=== PATIENT | male | born 1950 | race Caucasian/White ===

== ENCOUNTER 2024-05-12 21:59 | Inpatient (IN) | payer MEDICARE, OTHER, SELFPAY ==
[2024-05-12] VITALS (12 sets, daily range): BP systolic 114; BP diastolic 60; PULSE 112; TEMP 36.9; O2SAT 90–97
--- NOTE | 2024-05-12 22:46 | ED_ITS ---
HPI - SOB/Dyspnea General Chief Complaint: Shortness of Breath/Dyspnea Stated Complaint: Shortness of Breath, Fever Time Seen by Provider: 05/12/24 22:40 Source: patient Mode of arrival: Wheelchair Limitations: no limitations History of Present Illness HPI Narrative: past history of cholangiocarcinoma. Receiving chemo. Last chemo 2 weeks ago. Today fever, chills, cough and short of breath. No chest pain. Has joint pains Related Data Home Medications ?Medication ?Instructions ?Recorded ?Confirmed albuterol sulfate 90 mcg/actuation 2 inh inhalation BID PRN shortness 05/12/24 05/13/24 aerosol inhaler of breath or wheezing aspirin 81 mg capsule 81 mg PO DAILY 05/12/24 05/12/24 carvedilol 12.5 mg tablet 12.5 mg PO BID 05/12/24 05/13/24 empagliflozin 25 mg tablet 25 mg PO .AM 05/12/24 05/13/24 (Jardiance) fluticasone fur. 200 mcg-umeclid 1 inh inhalation Q24H 05/12/24 05/13/24 62.5 mcg-vilant 25 mcg inhalat.powder (Trelegy Ellipta) glipizide 5 mg tablet 5 mg PO BID 05/12/24 05/13/24 insulin glargine 100 unit/mL (3 15 unit subcut .PM 05/12/24 05/13/24 mL) subcutaneous pen (Basaglar KwikPen U-100 Insulin) linagliptin 5 mg tablet (Tradjenta) 5 mg PO DAILY 05/12/24 05/13/24 uxzgky-fqlzuilv-dkppqdl cap PO 05/12/24 6,000-19,000-30,000 unit capsule,delayed rel (Creon) metformin 500 mg tablet,extended 2,000 mg PO .AM 05/12/24 05/13/24 release 24 hr pioglitazone 45 mg tablet 45 mg PO .AM 05/12/24 05/13/24 Allergies Allergy/AdvReac Type Severity Reaction Status Date / Time clarithromycin [From Biaxin] AdvReac Mild Agitated Verified 05/12/24 22:10 Review of Systems ROS Status of ROS 10 or more systems reviewed and unremark able except as noted in history and below [facility] Medical History (Updated 05/13/24 @ 11:06 by Shaikh Leighton MD) HLD (hyperlipidemia) ?E78.5 - Hyperlipidemia, unspecified (ICD-10) (HFpEF) heart failure with preserved ejection fraction ?I50.30 - Unspecified diastolic (congestive) heart failure (ICD-10) CKD stage 3a, GFR 45-59 ml/min ?N18.31 - Chronic kidney disease, stage 3a (ICD-10) CAD (coronary artery disease) ?I25.10 - Atherosclerotic heart disease of [place] coronary artery without angina pectoris (ICD-10) Diabetes ?E11.9 - Type 2 diabetes mellitus without complications (ICD-10) COPD (chronic obstructive pulmonary disease) ?J44.9 - Chronic obstructive pulmonary disease, unspecified (ICD-10) AAA (abdominal aortic aneurysm) ?I71.40 - Abdominal aortic aneurysm, without rupture, unspecified (ICD-10) Cholangiocarcinoma ?C22.1 - Intrahepatic bile duct carcinoma (ICD-10) Surgical History (Updated 05/13/24 @ 05:01 by Karime Carvajal RN) AICD (automatic cardioverter/defibrillator) present ?Z95.810 - Presence of automatic (implantable) cardiac defibrillator (ICD-10) History of quadruple bypass ?Z95.1 - Presence of aortocoronary bypass graft (ICD-10) Family History (Updated 05/13/24 @ 00:46 by Karime Carvajal, NAE) Other Family history of COPD (chronic obstructive pulmonary disease) Family history of cancer Social History (Updated 05/13/24 @ 00:48 by Karime Carvajal RN) Within the past year, how often did you have a drink containing alcohol: never Score interpretation: A score less than 4 is consistent with normal alcohol consumption. Smoking status: Former smoker Non-prescribed substance use: denies use Highest level of school completed/degree received: some college, no degree Are you now , , , , never or living with a partner: In a typical week, how many times do you talk on the telephone with family, friends, or neighbors: 3 or more times per week How often do you get together with friends or relatives: 3 or more times per week Little interest or pleasure in doing things: not at all Feeling down, depressed, or hopeless: not at all Do you think of yourself as: straight/heterosexual Gender Identity: male Exam Constitutional Vital Signs, click to edit/add: Last Vital Signs Temp 98 F 05/13/24 23:19 Pulse 108 H 05/14/24 00:00 Resp 22 H 05/13/24 23:19 BP 144/71 H 05/13/24 23:19 Pulse Ox 94 L 05/13/24 23:19 O2 Del Method Nasal Cannula 05/13/24 23:19 O2 Flow Rate 4 05/13/24 23:19 Common normals: no apparent distress, average body habitus, oriented x3, no limitations, healthy appearing, alert and well nourished [facility] Common normals: normocephalic and head/scalp atraumatic Eye Common normals: EOMs intact bilaterally and conjunctivae normal Respiratory Common normals: normal respiratory effort, no retractions, no use of accessory muscles and clear to auscultation bilaterally Cardio Common normals: regular rate, regular rhythm, S1 normal heart sound and S2 normal heart sound GI Common normals: Normal to inspection, nondistended, normoactive bowel sounds present, soft to palpation and non-tender Extremity Common normals: normal to inspection and full ROM Neuro Common normals: oriented x3, CN's II-XII intact bilaterally and moves all extremities Psych Appearance: grossly normal Course Vital Signs Vital signs: Vital Signs Temperature 98.5 F 05/12/24 22:03 Pulse Rate 112 H 05/12/24 22:03 Respiratory Rate 22 H 05/12/24 22:03 Blood Pressure 114/60 05/12/24 22:03 Pulse Oximetry 90 L 05/12/24 22:03 Oxygen Delivery Method Room Air 05/12/24 22:03 Temperature 98 F 05/13/24 23:19 Pulse Rate 108 H 05/14/24 00:00 Respiratory Rate 22 H 05/13/24 23:19 Blood Pressure 144/71 H 05/13/24 23:19 Pulse Oximetry 94 L 05/13/24 23:19 Oxygen Delivery Method Nasal Cannula 05/13/24 23:19 Oxygen Delivery Flow Rate 4 05/13/24 23:19 MDM - SOB/Dyspnea MDM Narrative Medical decision making narrative: patient history of cholangiocarcinoma receiving chemotherapy. Last course of chemo was 2 weeks ago. Fever tonight around 6pm 102. Treated with tylenol and ibuprofen. complains of chills and shortness of breath. History of COPD. WBC 0.2. Plt count 26. cxray report pending. cxray with focal infiltrate left chest. Pulse ox @LNC 94%. Discussed with oncologist Dr Jameson who feels the patient can stay here. Dimer elevated and CTA chest ordered Lab Data Labs: Lab Results 05/12/24 Range/Units 22:20 WBC 0.2 L* (4.0-11.0) 10^3/uL RBC 2.73 L (4.70-6.10) 10^6/uL Hgb 7.8 L (14.0-18.0) g/dL Hct 24.0 L (42.0-54.0) % MCV 87.9 (80.0-94.0) fL MCH 28.6 (25.9-34.0) pg MCHC 32.5 (29.9-35.2) g/dL RDW 13.8 (11.0-15.0) % Plt Count 26 L* (150-450) 10^3/uL MPV 12.4 (9.5-13.5) fL Seg Neuts % (Manual) 5.0 L (43.0-75.0) Band Neutrophils % 4.0 (0-5) % Lymphocytes % (Manual) 57.0 (20.5-60.0) % Atypical Lymphs % (Man) 4.0 % Monocytes % (Manual) 10.0 (1.7-12.0) % Eosinophils % (Manual) 15.0 H (0.9-7.0) % Basophils % (Manual) 0.0 L (0.2-2.0) % Myelocytes % 6.0 Blast Cells % (Manual) 0.0 Neutrophils # (Manual) 0.01 L (1.4-6.5) 10^3/uL Band Neutrophils # 0.0 (0.0-0.3) 10^3/uL Lymphocytes # (Manual) 0.11 L (1.20-3.80) 10^3/uL Abs Atypical Lymphs Man 0.00 Monocytes # (Manual) 0.02 L (0.30-0.80) 10^3/uL Eosinophils # (Manual) 0.03 (0.00-0.70) 10^3/uL Basophils # (Manual) 0.00 (0.00-0.10) 10^3/uL Myelocytes # 0.01 Blast Cells # 0 Toxic Granulation 4+ Toxic Vacuolation 1+ D-Dimer 9.15 H* (<=0.59) mg/L FEU Sodium 135 L (136-145) mmol/L Potassium 3.3 L (3.5-5.1) mmol/L Chloride 102 (98-107) mmol/L Carbon Dioxide 23.9 (21.0-32.0) mmol/L Anion Gap 12.4 BUN 22.0 H (7.0-18.0) mg/dL Creatinine 1.48 H (0.70-1.30) mg/dL Est GFR ( Amer) 57 L (>=60) Est GFR (Non-Af Amer) 47 L (>=60) BUN/Creatinine Ratio 14.9 Glucose 134 H (74-106) mg/dL Lactate 1.2 (0.4-2.0) mmol/L Calcium 8.3 L (8.5-10.1) mg/dL Total Bilirubin 0.5 (0.2-1.0) mg/dL AST 12 L (15-37) U/L ALT 17 (16-63) U/L Alkaline Phosphatase 97 (46-116) U/L Total Protein 6.6 (6.4-8.2) g/dL Albumin 2.7 L (3.4-5.0) g/dL Globulin 3.9 g/dL Albumin/Globulin Ratio 0.7 Discharge Plan Discharge Chief Complaint: Shortness of Breath/Dyspnea Clinical Impression: Neutropenic fever, Thrombocytopenia, Left lower lobe pneumonia, Anemia, Acute dyspnea Patient Disposition: Admitted As Inpatient Discharge Date/Time: 05/13/24 00:34
--- NOTE | 2024-05-12 22:48 | XR_ITS ---
The [address] [address] Patient Name: DA SMITH MRN: [id number] date: 1950 Sex: M Assigned Patient Location: ER Current Patient Location: ER Accession/Order Number: [id number] Exam Date: 05/12/2024 22:58 Report Date: 05/12/2024 23:21 At the request of: LUIS DANIEL YORK Procedure: XR chest 1V EXAM: XR chest 1V HISTORY: short of breath COMPARISON: None. TECHNIQUE: One view chest FINDINGS: There are postoperative changes from CABG. A left subclavian pacemaker and right IJ Port-A-Cath are well positioned. The heart size is normal. The lungs are hyperexpanded. There is chronic fibrotic changes of the lungs. There is a focal left basilar infiltrate. There is no effusion or pneumothorax. XR/XR chest 1V IMPRESSION: 1. Focal left lower lobe infiltrate superimposed upon chronic fibrotic changes of the lungs. Recommend follow-up imaging to ensure resolution. Electronically authenticated by: ABBI CLEMENTE Date: 05/12/2024 23:21
[2024-05-12 22:54] LABS: Hemoglobin 7.8 g/dL (14.0-18.0); Mean Corpuscular HGB Conc 32.5 g/dL (29.9-35.2); Mean Corpuscular Hemoglobin 28.6 pg (25.9-34.0); Mean Corpuscular Volume 87.9 fL (80.0-94.0); Mean Platelet Volume 12.4 fL (9.5-13.5); Red Blood Count 2.73 10^6/uL (4.70-6.10); Red Cell Distribution Width 13.8 % (11.0-15.0)
[2024-05-12] MEDS: 0.9 % SODIUM CHLORIDE 1,000 ML 999 ML IV (22:58)
[2024-05-12 23:00] LABS: Platelet Count 26 10^3/uL (150-450); White Blood Count 0.2 10^3/uL (4.0-11.0)
[2024-05-12 23:13] LABS: Lactate/Lactic Acid 1.2 mmol/L (0.4-2.0)
[2024-05-12 23:21] LABS: Alanine Aminotransferase 17 U/L (16-63); Albumin Globulin Ratio 0.7; Albumin Level 2.7 g/dL (3.4-5.0); Alkaline Phosphatase 97 U/L (46-116); Anion Gap 12.4; Aspartate Amino Transferase 12 U/L (15-37); BUN Creatinine Ratio 14.9; Bilirubin Total 0.5 mg/dL (0.2-1.0); Calcium 8.3 mg/dL (8.5-10.1); Carbon Dioxide 23.9 mmol/L (21.0-32.0); Chloride 102 mmol/L (98-107); Estimated GFR (African America 57 (>=60); Estimated GFR (Non-African Ame 47 (>=60); Globulin 3.9 g/dL; Glucose 134 mg/dL (74-106); Potassium 3.3 mmol/L (3.5-5.1); Sodium 135 mmol/L (136-145); Total Protein 6.6 g/dL (6.4-8.2)
[2024-05-12] MEDS: VANCOMYCIN HCL 1,000 MG in 0.9 % SODIUM CHLORIDE 500 ML 250 MG IV (23:32)
[2024-05-12 23:49] LABS: D Dimer 9.15 mg/L FEU (<=0.59)
--- NOTE | 2024-05-12 23:50 | CT_ITS ---
The [address] [address] Patient Name: DA SMITH MRN: [id number] date: 1950 Sex: M Assigned Patient Location: ER Current Patient Location: Accession/Order Number: [id number] Exam Date: 05/12/2024 23:55 Report Date: 05/13/2024 00:52 At the request of: LUIS DANIEL YORK Procedure: CT angio chest CT angio chest 05/12/2024 10:55 PM CDT: History: short of breath Chest pain. Possible pulmonary embolism. Comparison: None. Technique: IV Contrast enhanced CTA imaging of the chest. Sagittal and coronal MIP reformatted images are provided. This CT exam was performed using one or more of the following dose reduction techniques: Automated exposure control, adjustment of the mA and/or KV according to patient size, or use of iterative reconstruction technique. Findings: The central airway is midline and patent. There are advanced emphysematous changes of the lungs bilaterally. There are several small subcentimeter pulmonary nodules scattered throughout the anterior segment of the upper lobes bilaterally. The largest on the right measures 4 mm and the largest on the left measures 4 mm. There is strandy infiltrates in the anterior inferior segment of the left lower lobe and the posterior segment of the right lower lobe. There is a calcified granuloma in the right middle lobe. There is bibasilar atelectasis and/or scar. There is no pleural effusion. The heart size is normal. There are postoperative changes from CABG. There is a left subclavian pacemaker. There is a right IJ Port-A-Cath. The pulmonary arteries are patent and normal in caliber. There is no pulmonary embolism. There are prominent mediastinal nodes. For example, a dominant right paratracheal node measures 12 mm in long axis. A dominant subcarinal node measures 23 mm in long axis. Limited imaging through the upper abdomen reveals no acute abnormality. There is pneumobilia. There is degenerative disc disease of the thoracic spine. CT/CT angio chest Impression: 1. COPD with multiple bilateral subcentimeter pulmonary nodules. Recommend follow-up CT imaging of the chest in 3 months. 2. Multifocal infiltrates in the left lower lobe in the right lower lobe, suspicious for pneumonia. 3. No pulmonary embolism. Electronically authenticated by: ABBI CLEMENTE Date: 05/13/2024 00:52
[2024-05-12] MEDS: PIPERACILLIN SODIUM/TAZOBACTAM 3.375 GM in 0.9 % SODIUM CHLORIDE 50 ML IV (23:52)
[2024-05-13] VITALS (19 sets, daily range): BP systolic 97–144; BP diastolic 57–71; PULSE 68–117; TEMP 36.4–36.8; O2SAT 87–96; BMI 23.6
[2024-05-13] LABS: Segmented Neut Absolute Manual 0.01 10^3/uL (1.4-6.5)
[2024-05-13 00:01] LABS: Eosinophils Absolute Manual 0.03 10^3/uL (0.00-0.70); Monocytes Absolute Manual 0.02 10^3/uL (0.30-0.80)
[2024-05-13] MEDS: IBUPROFEN 600 MG TABLET PO (00:01)
[2024-05-13 00:02] LABS: Blast Absolute Manual 0; Myelocytes Absolute Manual 0.01
[2024-05-13 00:03] LABS: Lymphocytes Absolute Manual 0.11 10^3/uL (1.20-3.80)
[2024-05-13 00:04] LABS: Toxic Granulation 4+; Toxic Vacuolation 1+
[2024-05-13] MEDS: 0.9 % SODIUM CHLORIDE 1,000 ML 999 ML IV (00:20)
[2024-05-13] MEDS: VANCOMYCIN HCL 1,000 MG in 0.9 % SODIUM CHLORIDE 500 ML 250 MG IV (00:21)
[2024-05-13] MEDS: FILGRASTIM 480 MCG/1.6 ML VIAL 300 MCG SUBQ (01:13)
[2024-05-13] MEDS: TEMAZEPAM 15 MG CAPSULE PO ×2 (01:14→21:08)
[2024-05-13] MEDS: 0.9 % SODIUM CHLORIDE 1,000 ML 100 ML IV ×3 (01:16→21:08)
[2024-05-13] MEDS: IPRATROPIUM/ALBUTEROL SULFATE 3 ML AMPUL.NEB IH (04:13)
--- NOTE | 2024-05-13 04:23 | RESP.RT ---
Titrated to 1 lpm
--- NOTE | 2024-05-13 04:26 | RESP.RT ---
Titrated to 1 lpm
[2024-05-13 06:38] LABS: Eosinophils Percent Auto 8.1 % (0.9-7.0); Hemoglobin 7.9 g/dL (14.0-18.0); Lymphocytes Absolute Auto 0.2 10^3/uL (1.2-3.8); Lymphocytes Percent Auto 64.9 % (20.5-60.0); Mean Corpuscular HGB Conc 31.6 g/dL (29.9-35.2); Mean Corpuscular Hemoglobin 28.6 pg (25.9-34.0); Mean Corpuscular Volume 90.6 fL (80.0-94.0); Mean Platelet Volume 12.4 fL (9.5-13.5); Monocytes Percent Auto 10.8 % (1.7-12.0); Neutrophils Absolute Auto 0.1 10^3/uL (1.4-6.5); Neutrophils Percent Auto 16.2 % (43.0-75.0); Platelet Count 27 10^3/uL (150-450); Red Blood Count 2.76 10^6/uL (4.70-6.10); Red Cell Distribution Width 14.1 % (11.0-15.0); White Blood Count 0.4 10^3/uL (4.0-11.0)
[2024-05-13 06:46] LABS: Bilirubin Urine NEGATIVE (NEGATIVE); Blood Urine NEGATIVE (NEGATIVE); Clarity Urine CLEAR (CLEAR); Color Urine YELLOW (YELLOW); Glucose Urine UA >=1000 mg/dL (NEGATIVE); Ketones Urine NEGATIVE (NEGATIVE); Leukocyte Esterase Urine NEGATIVE (NEGATIVE); Nitrite Urine NEGATIVE (NEGATIVE); Protein Urine TRACE mg/dL (NEG/TRACE); Urobilinogen Urine 0.2 EU/dL (0.2-1.0); pH Urine 5.5 (5.0-9.0)
[2024-05-13 06:52] LABS: Urine Microscopic Indicated NO
[2024-05-13 07:01] LABS: Alanine Aminotransferase 16 U/L (16-63); Albumin Globulin Ratio 0.6; Albumin Level 2.3 g/dL (3.4-5.0); Alkaline Phosphatase 92 U/L (46-116); Anion Gap 14.4; Aspartate Amino Transferase 15 U/L (15-37); Bilirubin Total 0.4 mg/dL (0.2-1.0); Calcium 7.7 mg/dL (8.5-10.1); Carbon Dioxide 21.3 mmol/L (21.0-32.0); Chloride 106 mmol/L (98-107); Estimated GFR (African America 51 (>=60); Estimated GFR (Non-African Ame 42 (>=60); Globulin 3.8 g/dL; Glucose 170 mg/dL (74-106); Magnesium 1.4 mg/dL (1.8-2.4); Potassium 3.7 mmol/L (3.5-5.1); Sodium 138 mmol/L (136-145); Total Protein 6.1 g/dL (6.4-8.2)
[2024-05-13 07:56] LABS: Glucometer 143 mg/dL (74-106)
[2024-05-13] MEDS: ACETAMINOPHEN 325 MG TABLET 650 MG PO (08:49)
[2024-05-13] MEDS: PIPERACILLIN SODIUM/TAZOBACTAM 3.375 GM in 0.9 % SODIUM CHLORIDE 50 ML IV ×3 (09:05→23:16)
--- NOTE | 2024-05-13 10:32 | CM.NOTE ---
Rounds made with Dr. Manzanares, discussed diagnosis with pt and treatment. Dr. Manzanares also discussed code status with pt and family members. Pt will not discharge today. Pt continues with labored breathing at rest, pt using accessory muscles and having conversational dyspnea.
--- NOTE | 2024-05-13 10:38 | P.HP_ITS ---
HPI H&P: HPI History of Present Illness Chief complaint: Shortness of Breath, Fever Narrative: 74-year-old male with history of cholangiocarcinoma, currently on chemotherapy developed high-grade fever last night and was brought over to ER for further evaluation. According to the patient he has been increasingly short of breath for past 2 days along with increased cough that is productive in nature. He does not use oxygen at home and was found to have borderline low pulse ox requiring supplemental oxygen (1 to 2 L via nasal cannula). Workup in ER revealed bilateral infiltrates along with severe neutropenia. He reports report Neupogen 3 days ago as outpatient and was given another dose overnight in ER. Patient is a still quite dyspneic at rest with conversational dyspnea noted. He is tachypneic with respiratory rate over 25 along with abdominal breathing. His last dose of chemotherapy was about 2 weeks ago. Given his immunosuppression, history of cholangiocarcinoma and underlying chronic lung disease-he was started on broad-spectrum antibiotics and is currently on IV vancomycin and Zosyn. He is also on gentle IV hydration because of prior history of heart failure. I was notified overnight that patient had 14 beats of V. tach but upon review of telemetry, this does not appear to be the case Opioid HPI Opioid Management Most Recent Pain and Opioid Data: Last Pain Scale 8 05/13/24 08:49 Last Pain Assessment 05/13/24 09:40 Last MAR Pain Assessment 05/13/24 10:06 Last ORT Total Score 0 05/13/24 00:55 Last ORT Risk Category Low Risk 05/13/24 00:55 Review of Systems ROS Status of ROS 10 or more systems reviewed and unremark able except as noted in history and below [facility] History (Updated 05/13/24 @ 11:06 by Shaikh Leighton MD) HLD (hyperlipidemia) ?E78.5 - Hyperlipidemia, unspecified (ICD-10) (HFpEF) heart failure with preserved ejection fraction ?I50.30 - Unspecified diastolic (congestive) heart failure (ICD-10) CKD stage 3a, GFR 45-59 ml/min ?N18.31 - Chronic kidney disease, stage 3a (ICD-10) CAD (coronary artery disease) ?I25.10 - Atherosclerotic heart disease of [place] coronary artery without angina pectoris (ICD-10) Diabetes ?E11.9 - Type 2 diabetes mellitus without complications (ICD-10) COPD (chronic obstructive pulmonary disease) ?J44.9 - Chronic obstructive pulmonary disease, unspecified (ICD-10) AAA (abdominal aortic aneurysm) ?I71.40 - Abdominal aortic aneurysm, without rupture, unspecified (ICD-10) Cholangiocarcinoma ?C22.1 - Intrahepatic bile duct carcinoma (ICD-10) Surgical History (Updated 05/13/24 @ 05:01 by Karime Carvajal, NAE) AICD (automatic cardioverter/defibrillator) present ?Z95.810 - Presence of automatic (implantable) cardiac defibrillator (ICD-10) History of quadruple bypass ?Z95.1 - Presence of aortocoronary bypass graft (ICD-10) Family History (Updated 05/13/24 @ 00:46 by Karime Carvajal, NAE) Other Family history of COPD (chronic obstructive pulmonary disease) Family history of cancer Social History (Updated 05/13/24 @ 00:48 by Karime Carvajal, NAE) Within the past year, how often did you have a drink containing alcohol: never Score interpretation: A score less than 4 is consistent with normal alcohol consumption. Smoking status: Former smoker Non-prescribed substance use: denies use Highest level of school completed/degree received: some college, no degree Are you now , , , , never or living with a partner: In a typical week, how many times do you talk on the telephone with family, friends, or neighbors: 3 or more times per week How often do you get together with friends or relatives: 3 or more times per week Little interest or pleasure in doing things: not at all Feeling down, depressed, or hopeless: not at all Do you think of yourself as: straight/heterosexual Gender Identity: male Meds Home Medications and Allergies Home Medications ?Medication ?Instructions ?Recorded ?Confirmed ?Type albuterol sulfate 90 mcg/actuation 2 inh inhalation BID PRN shortness 05/12/24 05/13/24 History aerosol inhaler of breath or wheezing aspirin 81 mg capsule 81 mg PO DAILY 05/12/24 05/12/24 History carvedilol 12.5 mg tablet 12.5 mg PO BID 05/12/24 05/13/24 History empagliflozin 25 mg tablet 25 mg PO .AM 05/12/24 05/13/24 History (Jardiance) fluticasone fur. 200 mcg-umeclid 1 inh inhalation Q24H 05/12/24 05/13/24 History 62.5 mcg-vilant 25 mcg inhalat.powder (Trelegy Ellipta) glipizide 5 mg tablet 5 mg PO BID 05/12/24 05/13/24 History insulin glargine 100 unit/mL (3 15 unit subcut .PM 05/12/24 05/13/24 History mL) subcutaneous pen (Basaglar KwikPen U-100 Insulin) linagliptin 5 mg tablet (Tradjenta) 5 mg PO DAILY 05/12/24 05/13/24 History tpxiuy-eikgbrsh-meeszgx cap PO 05/12/24 History 6,000-19,000-30,000 unit capsule,delayed rel (Creon) metformin 500 mg tablet,extended 2,000 mg PO .AM 05/12/24 05/13/24 History release 24 hr pioglitazone 45 mg tablet 45 mg PO .AM 05/12/24 05/13/24 History Allergies Allergy/AdvReac Type Severity Reaction Status Date / Time clarithromycin [From Biaxin] AdvReac Mild Agitated Verified 05/12/24 22:10 Exam Constitutional Vital Signs, click to edit/add: Last Vital Signs Temp 97.8 F 05/13/24 07:54 Pulse 108 H 05/13/24 10:00 Resp 20 05/13/24 07:54 BP 97/58 05/13/24 07:54 Pulse Ox 92 L 05/13/24 07:54 O2 Del Method Nasal Cannula 05/13/24 07:54 O2 Flow Rate 1 05/13/24 07:54 General appearance: cooperative, in distress respiratory and ill appearing [facility] Common normals: normocephalic and head/scalp atraumatic Respiratory Effort & inspection: tachypneic and respiratory distress (Using abdominal muscles for breathing) Auscultation: wheezes throughout and diminished lung sounds Other: Conversational dyspnea noted Cardio Common normals: regular rhythm, S1 normal heart sound and S2 normal heart sound Rate: tachycardic GI Common normals: Normal to inspection, nondistended, normoactive bowel sounds present, soft to palpation and non-tender Extremity Common normals: normal to inspection and full ROM Neuro Common normals: oriented x3, no focal motor deficits and no sensory deficits noted Psych Common normals: mental status grossly normal, thought process normal, denies homicidal ideation and denies suicidal ideation Results Labs Labs: Short CBC 05/12/24 05/13/24 Range/Units 22:20 06:30 WBC 0.2 L* 0.4 L* (4.0-11.0) 10^3/uL Hgb 7.8 L 7.9 L (14.0-18.0) g/dL Hct 24.0 L 25.0 L (42.0-54.0) % Plt Count 26 L* 27 L* (150-450) 10^3/uL BMP 05/12/24 05/13/24 22:20 06:30 Sodium 135 L 138 Potassium 3.3 L 3.7 Chloride 102 106 Carbon Dioxide 23.9 21.3 BUN 22.0 H 21.0 H Creatinine 1.48 H 1.62 H Glucose 134 H 170 H Calcium 8.3 L 7.7 L Liver Function 05/12/24 05/13/24 Range/Units 22:20 06:30 Total Bilirubin 0.5 0.4 (0.2-1.0) mg/dL AST 12 L 15 (15-37) U/L ALT 17 16 (16-63) U/L Alkaline Phosphatase 97 92 (46-116) U/L Albumin 2.7 L 2.3 L (3.4-5.0) g/dL Urine 05/13/24 Range/Units 06:25 Urine Color Yellow (YELLOW) Urine Clarity Clear (CLEAR) Urine pH 5.5 (5.0-9.0) Ur Specific [place] 1.010 (1.005-1.025) Urine Protein Trace (NEG/TRACE) mg/dL Urine Glucose (UA) >=1000 A (NEGATIVE) mg/dL Assessment and Plan Assessment and Plan (1) Sepsis: Assessment and Plan: SIRS criteria: WBC (0.9) RR> 20, HR> 100 qsofa RR> 22, SBP<100 Source of infection: B/l PNA. Still tachycardic, tachypneic. 500 ml IVF bolus ordered. Cautious with IV hydration due to hx of HFrEF. C/w IVF, IV abx. F/u blood and sputum cx. Qualifiers: Sepsis acute organ dysfunction status: without acute organ dysfunction Sepsis type: sepsis due to unspecified organism Qualified Code(s): A41.9 - Sepsis, unspecified organism (2) Bilateral pneumonia: Assessment and Plan: Bilateral pneumonia with history of immunosuppression/underlying chronic lung disease. At risk of resistant organisms. Follow-up blood and sputum cultures. On IV vancomycin and IV Zosyn. Qualifiers: Lung location: lower lobe of lung Pneumonia type: due to unspecified organism Qualified Code(s): J18.9 - Pneumonia, unspecified organism (3) COPD exacerbation: Assessment and Plan: Diminished air entry, wheezing along with tachypnea and tachycardia. COPD ex acerbation is likely secondary to underlying bacterial pneumonia. Continue with systemic steroids, inhaled bronchodilators (4) Cholangiocarcinoma: Assessment and Plan: History of cholangiocarcinoma. Diagnosed 2 years ago. On chemotherapy and last dose was 2 weeks ago. Normal lung nodules noted on CTA. Consulted oncology for their recommendation (5) Neutropenic fever: Assessment and Plan: Reported fever of 102 at home. Afebrile since patient has been in the hospital. Received Neupogen in ER. Consulted oncology. Neutropenic fever secondary to bilateral pneumonia. On broad-spectrum antibiotics. (6) Immunocompromised patient: Assessment and Plan: Neutropenic, currently on chemotherapy. At high risk of resistant organisms. On broad-spectrum antibiotics. Neutropenic precautions (7) Pancytopenia: Assessment and Plan: Due to chemotherapy. Hold aspirin and DVT prophylaxis because of thrombocytopenia. Neutropenic precautions. On broad-spectrum antibiotics. Oncology consulted. (8) (HFpEF) heart failure with preserved ejection fraction: Assessment and Plan: Elevated BNP but appears volume depleted and presenting with sepsis. Gentle IV hydration and cautious/careful monitoring of volume status to avoid volume overload Qualifiers: Heart failure chronicity: chronic Qualified Code(s): I50.32 - Chronic diastolic (congestive) heart failure (9) Diabetes: Assessment and Plan: Findings scale insulin along with basal insulin. Hold oral hypoglycemics. Qualifiers: Chronic kidney disease stage: stage 3 (moderate) Chronic kidney disease stage 3 subtype: stage 3a (GFR 45-59) Diabetes mellitus complication detail: with chronic kidney disease Diabetes mellitus complication status: with kidney complications Diabetes mellitus termite control representative insulin use: with termite control representative use Diabetes mellitus type: type 2 Qualified Code(s): E11.22 - Type 2 diabetes mellitus with diabetic chronic kidney disease; N18.31 - Chronic kidney disease, stage 3a; Z79.4 - vermin exterminator (current) use of insulin (10) CAD (coronary artery disease): Assessment and Plan: Coronary artery bypass surgery. No evidence of active cardiac ischemia. Monitor. Hold aspirin because of thrombocytopenia. Qualifiers: Associated angina: without angina Coronary Disease-Associated Art f[place]ad/Lesion type: [place] artery [place] vs. transplanted heart: [place] heart Qualified Code(s): I25.10 - Atherosclerotic heart disease of [place] coronary artery without angina pectoris (11) CKD stage 3a, GFR 45-59 ml/min: Assessment and Plan: Renal function more or less at baseline. Closely monitor while on IV antibiotic as vancomycin/Zosyn or nephrotoxic (12) HLD (hyperlipidemia): Assessment and Plan: Continue with statin. Qualifiers: Hyperlipidemia type: unspecified Qualified Code(s): E78.5 - Hyperlipidemia, unspecified
[2024-05-13] MEDS: 0.9 % SODIUM CHLORIDE 500 ML 1000 ML IV (11:21)
[2024-05-13] MEDS: METHYLPREDNISOLONE SOD SUCC PF 40 MG/ML VIAL IVP ×2 (11:22→21:08)
[2024-05-13 11:43] LABS: Glucometer 104 mg/dL (74-106)
--- NOTE | 2024-05-13 12:46 | CM.NOTE ---
Discussed discharge planning with pt's daughter, denies any discharge needs. Pt is living in [place] and daughter will contact pt's PCP if need any home services.
--- NOTE | 2024-05-13 15:45 | CM.NOTE ---
Important Message From medicare discussed with pt, pt verbalizes understanding and signs paper. Original given to pt and copy placed on pt's chart.
[2024-05-13 16:04] LABS: Glucometer 198 mg/dL (74-106)
--- NOTE | 2024-05-13 18:50 | DIETREC ---
Recommend 237 mL Ensure Original d/t wt loss and increased nutrient requirements. TigerText to Dr. Manzanares [id number].
[2024-05-13 20:56] LABS: Glucometer 276 mg/dL (74-106)
[2024-05-13] MEDS: INSULIN DETEMIR 300 UNIT/3 ML INSULN.PEN 15 UNIT SUBQ (21:13)
[2024-05-13] MEDS: VANCOMYCIN HCL 1,000 MG in 0.9 % SODIUM CHLORIDE 250 ML 250 MG IV (23:11)
[2024-05-13] MEDS: INSULIN ASPART 300 UNIT/3 ML PEN SUBQ (23:18)
[2024-05-14] VITALS (27 sets, daily range): BP systolic 107–128; BP diastolic 56–76; PULSE 16–133; TEMP 36.3–36.6; O2SAT 92–97
[2024-05-14] MEDS: GUAIFENESIN 200 MG/DEXTROMETHORPHAN 20 MG 10 ML UNIT DOSE CUP PO ×2 (00:39→08:54)
[2024-05-14] MEDS: METHYLPREDNISOLONE SOD SUCC PF 40 MG/ML VIAL IVP ×3 (05:30→20:54)
[2024-05-14 06:54] LABS: Mean Corpuscular HGB Conc 31.1 g/dL (29.9-35.2); Mean Corpuscular Volume 90.2 fL (80.0-94.0); Mean Platelet Volume 11.5 fL (9.5-13.5); Platelet Count 43 10^3/uL (150-450); Red Blood Count 2.46 10^6/uL (4.70-6.10); Red Cell Distribution Width 14.3 % (11.0-15.0)
[2024-05-14 07:03] LABS: Hemoglobin 6.9 g/dL (14.0-18.0); White Blood Count 0.5 10^3/uL (4.0-11.0)
[2024-05-14 07:04] LABS: Hematocrit 22.2 % (42.0-54.0)
[2024-05-14 07:15] LABS: Alanine Aminotransferase 17 U/L (16-63); Albumin Globulin Ratio 0.5; Albumin Level 1.9 g/dL (3.4-5.0); Alkaline Phosphatase 68 U/L (46-116); Anion Gap 11.2; Aspartate Amino Transferase 11 U/L (15-37); BUN Creatinine Ratio 19.2; Bilirubin Total 0.2 mg/dL (0.2-1.0); Carbon Dioxide 23.3 mmol/L (21.0-32.0); Chloride 108 mmol/L (98-107); Estimated GFR (African America >60 (>=60); Estimated GFR (Non-African Ame 54 (>=60); Globulin 3.5 g/dL; Glucose 150 mg/dL (74-106); Potassium 3.5 mmol/L (3.5-5.1); Sodium 139 mmol/L (136-145); Total Protein 5.4 g/dL (6.4-8.2)
[2024-05-14 07:49] LABS: Lymphocytes Absolute Manual 0.16 10^3/uL (1.20-3.80); Metamyelocytes Absolute Manual 0.01; Monocytes Absolute Manual 0.06 10^3/uL (0.30-0.80); Myelocytes Absolute Manual 0.01; Segmented Neut Absolute Manual 0.23 10^3/uL (1.4-6.5)
[2024-05-14 07:50] LABS: Dohle Bodies 1+; Toxic Granulation 1+
[2024-05-14] MEDS: PIPERACILLIN SODIUM/TAZOBACTAM 3.375 GM in 0.9 % SODIUM CHLORIDE 50 ML IV ×3 (08:54→23:08)
[2024-05-14] MEDS: ATORVASTATIN CALCIUM 40 MG TABLET 80 MG PO (08:54)
[2024-05-14 09:28] LABS: Hemoglobin 7.2 g/dL (14.0-18.0)
[2024-05-14] MEDS: FUROSEMIDE 20 MG/2 ML VIAL IVP (09:34)
[2024-05-14] MEDS: ACETAMINOPHEN 325 MG TABLET 650 MG PO (09:34)
--- NOTE | 2024-05-14 10:40 | PM.IMPN1 ---
Progress Note: A&P Assessment and Plan (1) Sepsis: Assessment and Plan: Hemodynamically stable now. F/u cx. C/w broad spectrum abx Qualifiers: Sepsis type: sepsis due to unspecified organism Sepsis acute organ dysfunction status: without acute organ dysfunction Qualified Code(s): A41.9 - Sepsis, unspecified organism (2) Bilateral pneumonia: Assessment and Plan: B/l Pna - at high risk of resistant organism. C/w Vancomycin/zosyn. F/u cx. Qualifiers: Pneumonia type: due to unspecified organism Lung location: lower lobe of lung Qualified Code(s): J18.9 - Pneumonia, unspecified organism (3) COPD exacerbation: Assessment and Plan: Diminished air movement, minimal wheezing likely because of bronchospasm Patient was refusing duonebs. Agreeable for q6 duonebs rx. C/w steroids, OPEP. (4) Cholangiocarcinoma: Assessment and Plan: On chemo, last dose 2 weeks. (5) Neutropenic fever: Assessment and Plan: Afebrile. Still neutropenic. On Broad spectrum abx for PNA. (6) Immunocompromised patient: Assessment and Plan: Due to neutropenia/chemotherapy. On neutropenic precautions. (7) Pancytopenia: Assessment and Plan: Hb below 7, ordered one unit. oncology on board. No active bleeding. (8) (HFpEF) heart failure with preserved ejection fraction: Assessment and Plan: One dose of IV lasix ordered with blood. More or less euvolemic based on exam Qualifiers: Heart failure chronicity: chronic Qualified Code(s): I50.32 - Chronic diastolic (congestive) heart failure (9) Diabetes: Assessment and Plan: FSBS above goal likely due to steroids. Increased levemir to 25 units qhs form 15 units. Qualifiers: Diabetes mellitus type: type 2 Diabetes mellitus jail insulin use: with jail use Diabetes mellitus complication status: with kidney complications Diabetes mellitus complication detail: with chronic kidney disease Chronic kidney disease stage: stage 3 (moderate) Chronic kidney disease stage 3 subtype: stage 3a (GFR 45-59) Qualified Code(s): E11.22 - Type 2 diabetes mellitus with diabetic chronic kidney disease; N18.31 - Chronic kidney disease, stage 3a; Z79.4 - termite control representative (current) use of insulin (10) CAD (coronary artery disease): Assessment and Plan: No active cardiac ischemia. Monitor. Hold ASA. Qualifiers: Coronary Disease-Associated Artery/Lesion type: [place] artery [place] vs. transplanted heart: [place] heart Associated angina: without angina Qualified Code(s): I25.10 - Atherosclerotic heart disease of [place] coronary artery without angina pectoris (11) Anemia requiring transfusions: Assessment and Plan: Hb 6.9--> Ordered one unit PRBC. Check post tx H&H at 3 pm (12) CKD stage 3a, GFR 45-59 ml/min: Assessment and Plan: Serum cr at baseline. monitor. (13) HLD (hyperlipidemia): Assessment and Plan: c/w statin Qualifiers: Hyperlipidemia type: unspecified Qualified Code(s): E78.5 - Hyperlipidemia, unspecified Internal Medicine - PN: Subj Subjective Interval history: Seen and examined. Subjectively feels better. Reports poor sleep overnight due to persistent cough. Still hypoxic and requiring O2 supplementation. Hb below 7 on morning labs, one unit PRBC ordered. Exam Constitutional Vital Signs, click to edit/add: Last Vital Signs Temp 97.4 F L 05/14/24 08:16 Pulse 95 H 05/14/24 09:56 Resp 16 05/14/24 08:16 BP 121/68 05/14/24 08:16 Pulse Ox 94 L 05/14/24 08:16 O2 Del Method Nasal Cannula 05/14/24 08:16 O2 Flow Rate 2 05/14/24 08:16 General appearance: cooperative, comfortable and frail appearing [facility] Common normals: normocephalic and head/scalp atraumatic Respiratory Common normals: normal respiratory effort Effort & inspection: able to speak in complete sentences Auscultation: diminished lung sounds Other: Conversational dyspnea noted. Cardio Common normals: regular rhythm, S1 normal heart sound and S2 normal heart sound Rate: regular rate Extremity Common normals: normal to inspection and full ROM Neuro Common normals: oriented x3, no focal motor deficits and no sensory deficits noted Psych Common normals: mental status grossly normal, thought process normal, denies homicidal ideation and denies suicidal ideation Internal Medicine - PN: Obj Da Labs Labs: Laboratory Results - last 24 hr 05/13/24 05/13/24 05/13/24 11:43 16:04 20:44 WBC RBC Hgb Hct MCV MCH MCHC RDW Plt Count MPV Seg Neuts % (Manual) Band Neutrophils % Lymphocytes % (Manual) Monocytes % (Manual) Eosinophils % (Manual) Basophils % (Manual) Metamyelocytes % Myelocytes % Neutrophils # (Manual) Band Neutrophils # Lymphocytes # (Manual) Monocytes # (Manual) Eosinophils # (Manual) Basophils # (Manual) Metamyelocytes # Myelocytes # Toxic Granulation Dohle Bodies Sodium Potassium Chloride Carbon Dioxide Anion Gap BUN Creatinine Est GFR ( Amer) Est GFR (Non-Af Amer) BUN/Creatinine Ratio Glucose Calcium Total Bilirubin AST ALT Alkaline Phosphatase Total Protein Albumin Globulin Albumin/Globulin Ratio POC Glucose 104 198 H 276 H Blood Type Antibody Screen 05/14/24 05/14/24 06:30 09:19 WBC 0.5 L* RBC 2.46 L Hgb 6.9 L* Hct 22.2 L* MCV 90.2 MCH 28.0 MCHC 31.1 RDW 14.3 Plt Count 43 L MPV 11.5 Seg Neuts % (Manual) 46.0 Band Neutrophils % 6.0 H Lymphocytes % (Manual) 32.0 Monocytes % (Manual) 12.0 Eosinophils % (Manual) 0.0 L Basophils % (Manual) 0.0 L Metamyelocytes % 3.0 Myelocytes % 2.0 Neutrophils # (Manual) 0.23 L Band Neutrophils # 0.0 Lymphocytes # (Manual) 0.16 L Monocytes # (Manual) 0.06 L Eosinophils # (Manual) 0.00 Basophils # (Manual) 0.00 Metamyelocytes # 0.01 Myelocytes # 0.01 Toxic Granulation 1+ Dohle Bodies 1+ Sodium 139 Potassium 3.5 Chloride 108 H Carbon Dioxide 23.3 Anion Gap 11.2 BUN 25.0 H Creatinine 1.30 Est GFR ( Amer) >60 Est GFR (Non-Af Amer) 54 L BUN/Creatinine Ratio 19.2 Glucose 150 H Calcium 8.0 L Total Bilirubin 0.2 AST 11 L ALT 17 Alkaline Phosphatase 68 Total Protein 5.4 L Albumin 1.9 L Globulin 3.5 Albumin/Globulin Ratio 0.5 POC Glucose Blood Type O Positive Antibody Screen Negative
[2024-05-14 11:13] LABS: Hematocrit 22.5 % (42.0-54.0)
[2024-05-14] MEDS: IPRATROPIUM/ALBUTEROL SULFATE 3 ML AMPUL.NEB IH ×3 (11:27→22:00)
[2024-05-14] MEDS: INSULIN ASPART 300 UNIT/3 ML PEN SUBQ ×3 (11:31→21:00)
[2024-05-14] MEDS: FILGRASTIM 480 MCG/1.6 ML VIAL SUBQ (15:11)
[2024-05-14 17:14] LABS: Hematocrit 26.3 % (42.0-54.0); Hemoglobin 8.6 g/dL (14.0-18.0)
[2024-05-14] MEDS: INSULIN DETEMIR 300 UNIT/3 ML INSULN.PEN 25 UNIT SUBQ (20:55)
[2024-05-14] MEDS: ZOLPIDEM TARTRATE 10 MG TABLET PO (23:08)
[2024-05-14] MEDS: VANCOMYCIN HCL 1,000 MG in 0.9 % SODIUM CHLORIDE 250 ML 250 MG IV (23:59)
[2024-05-15] VITALS (23 sets, daily range): BP systolic 121–137; BP diastolic 68–80; PULSE 67–111; TEMP 36.4–36.6; O2SAT 90–97
[2024-05-15] MEDS: METHYLPREDNISOLONE SOD SUCC PF 40 MG/ML VIAL IVP ×3 (03:45→21:29)
[2024-05-15] MEDS: IPRATROPIUM/ALBUTEROL SULFATE 3 ML AMPUL.NEB IH ×4 (04:08→22:06)
[2024-05-15 05:38] LABS: Hematocrit 24.3 % (42.0-54.0); Hemoglobin 7.8 g/dL (14.0-18.0); Mean Corpuscular HGB Conc 32.1 g/dL (29.9-35.2); Mean Corpuscular Volume 87.1 fL (80.0-94.0); Mean Platelet Volume 10.8 fL (9.5-13.5); Platelet Count 54 10^3/uL (150-450); Red Blood Count 2.79 10^6/uL (4.70-6.10); White Blood Count 2.1 10^3/uL (4.0-11.0)
--- NOTE | 2024-05-15 06:00 | XR_ITS ---
The [address] [address] Patient Name: DA SMITH MRN: [id number] date: 1950 Sex: M Assigned Patient Location: MS Current Patient Location: [place] Accession/Order Number: [id number] Exam Date: 05/15/2024 06:00 Report Date: 05/15/2024 07:06 At the request of: SHAIKH DAYNE Procedure: XR chest 1V EXAMINATION: XR chest 1V HISTORY: Shortness of breath COMPARISON: XR chest 05/12/2024 FINDINGS: LUNGS: Mild haziness and stranding within left lung base. VASCULATURE: No increased pulmonary vasculature. PLEURA: No pneumothorax, effusion, or pleural thickening. CARDIAC: Cardiac pacer. No cardiac enlargement. MEDIASTINUM: Prior sternotomy. No abnormal widening. BONES: No fracture or visible bone lesion. OTHER: Right chest wall Port-A-Cath with tip in superior vena cava. XR/XR chest 1V IMPRESSION: 1. Mild left basilar infiltrates versus atelectasis; increased since prior study. Electronically authenticated by: MARZENA SCALES Date: 05/15/2024 07:06
[2024-05-15 06:07] LABS: Alanine Aminotransferase 17 U/L (16-63); Albumin Globulin Ratio 0.5; Albumin Level 1.8 g/dL (3.4-5.0); Alkaline Phosphatase 72 U/L (46-116); Anion Gap 10.6; Aspartate Amino Transferase 7 U/L (15-37); BUN Creatinine Ratio 20.8; Bilirubin Total 0.3 mg/dL (0.2-1.0); Calcium 8.6 mg/dL (8.5-10.1); Carbon Dioxide 23.1 mmol/L (21.0-32.0); Chloride 108 mmol/L (98-107); Estimated GFR (African America 52 (>=60); Estimated GFR (Non-African Ame 43 (>=60); Globulin 3.7 g/dL; Glucose 306 mg/dL (74-106); Sodium 139 mmol/L (136-145); Total Protein 5.5 g/dL (6.4-8.2)
[2024-05-15 06:15] LABS: Potassium 2.7 mmol/L (3.5-5.1)
[2024-05-15 07:02] LABS: Dohle Bodies 1+; Lymphocytes Absolute Manual 0.37 10^3/uL (1.20-3.80); Monocytes Absolute Manual 0.46 10^3/uL (0.30-0.80); Segmented Neut Absolute Manual 1.26 10^3/uL (1.4-6.5)
[2024-05-15] MEDS: INSULIN ASPART 300 UNIT/3 ML PEN SUBQ ×4 (08:11→21:30)
[2024-05-15] MEDS: PIPERACILLIN SODIUM/TAZOBACTAM 3.375 GM in 0.9 % SODIUM CHLORIDE 50 ML IV ×2 (08:16→16:52)
[2024-05-15] MEDS: POTASSIUM CHLORIDE 10 MEQ ER TABLET 40 MEQ PO (08:17)
[2024-05-15] MEDS: ATORVASTATIN CALCIUM 40 MG TABLET 80 MG PO (08:17)
[2024-05-15] MEDS: ACETAMINOPHEN 325 MG TABLET 650 MG PO (08:17)
[2024-05-15] MEDS: POTASSIUM CHLORIDE 40 MEQ in 0.9 % SODIUM CHLORIDE 250 ML 67.5 MEQ IV (08:31)
[2024-05-15] MEDS: BENZONATATE 100 MG CAPSULE PO (10:13)
--- NOTE | 2024-05-15 11:20 | PM.IMPN1 ---
Progress Note: A&P Assessment and Plan (1) Sepsis: Assessment and Plan: Hemodynamically stable now. F/u cx. C/w broad spectrum abx Qualifiers: Sepsis type: sepsis due to unspecified organism Sepsis acute organ dysfunction status: without acute organ dysfunction Qualified Code(s): A41.9 - Sepsis, unspecified organism (2) Bilateral pneumonia: Assessment and Plan: B/l Pna - at high risk of resistant organism. CXR worse today but patient subjectively feeling better. C/w Vancomycin/zosyn. F/u cx. Qualifiers: Pneumonia type: due to unspecified organism Lung location: lower lobe of lung Qualified Code(s): J18.9 - Pneumonia, unspecified organism (3) COPD exacerbation: Assessment and Plan: Improved air entry after addition of Duonebs. C/w steroids, OPEP. (4) Cholangiocarcinoma: Assessment and Plan: On chemo, last dose 2 weeks. (5) Neutropenic fever: Assessment and Plan: Afebrile. Neutropenia improved with Neuopogen. He was dosed after consultation with Dr. Jameson who is his oncologist (6) Immunocompromised patient: Assessment and Plan: Due to neutropenia/chemotherapy. On neutropenic precautions. (7) Pancytopenia: Assessment and Plan: Hb stable. Received one unit PRBC. (8) (HFpEF) heart failure with preserved ejection fraction: Assessment and Plan: More or less euvolemic based on exam Qualifiers: Heart failure chronicity: chronic Qualified Code(s): I50.32 - Chronic diastolic (congestive) heart failure (9) Diabetes: Assessment and Plan: FSBS above goal likely due to steroids. Increased Levemir to 30 UNITS. Qualifiers: Diabetes mellitus type: type 2 Diabetes mellitus shelter insulin use: with shelter use Diabetes mellitus complication status: with kidney complications Diabetes mellitus complication detail: with chronic kidney disease Chronic kidney disease stage: stage 3 (moderate) Chronic kidney disease stage 3 subtype: stage 3a (GFR 45-59) Qualified Code(s): E11.22 - Type 2 diabetes mellitus with diabetic chronic kidney disease; N18.31 - Chronic kidney disease, stage 3a; Z79.4 - intermediate (current) use of insulin (10) CAD (coronary artery disease): Assessment and Plan: No active cardiac ischemia. Monitor. Hold ASA. Qualifiers: Coronary Disease-Associated Artery/Lesion type: [place] artery [place] vs. transplanted heart: [place] heart Associated angina: without angina Qualified Code(s): I25.10 - Atherosclerotic heart disease of [place] coronary artery without angina pectoris (11) Anemia requiring transfusions: Assessment and Plan: Required one unit PRBC 05/14 Hb stable. (12) CKD stage 3a, GFR 45-59 ml/min: Assessment and Plan: Serum cr at baseline. monitor. (13) HLD (hyperlipidemia): Assessment and Plan: c/w statin Qualifiers: Hyperlipidemia type: unspecified Qualified Code(s): E78.5 - Hyperlipidemia, unspecified Internal Medicine - PN: Subj Subjective Interval history: Seen and examined. Subjectively feels better. Cough is better too. Still on 2 L O2. But otherwise subjectively feeling better. . Exam Constitutional Vital Signs, click to edit/add: Last Vital Signs Temp 97.8 F 05/15/24 11:09 Pulse 90 05/15/24 11:09 Resp 18 05/15/24 11:09 BP 122/68 05/15/24 11:09 Pulse Ox 91 L 05/15/24 11:09 O2 Del Method Room Air 05/15/24 11:09 O2 Flow Rate 1 05/15/24 10:32 General appearance: cooperative, comfortable and frail appearing Respiratory Common normals: normal respiratory effort Effort & inspection: able to speak in complete sentences Auscultation: diminished lung sounds Cardio Common normals: regular rhythm, S1 normal heart sound and S2 normal heart sound Rate: regular rate Extremity Common normals: normal to inspection and full ROM Neuro Common normals: oriented x3, no focal motor deficits and no sensory deficits noted Psych Common normals: mental status grossly normal, thought process normal, denies homicidal ideation and denies suicidal ideation Internal Medicine - PN: Obj Da Labs Labs: Laboratory Results - last 24 hr 05/14/24 05/14/24 05/14/24 09:19 17:00 22:35 WBC RBC Hgb 8.6 L Hct 26.3 L MCV MCH MCHC RDW Plt Count MPV Seg Neuts % (Manual) Lymphocytes % (Manual) Monocytes % (Manual) Eosinophils % (Manual) Basophils % (Manual) Neutrophils # (Manual) Lymphocytes # (Manual) Monocytes # (Manual) Eosinophils # (Manual) Basophils # (Manual) Dohle Bodies Sodium Potassium Chloride Carbon Dioxide Anion Gap BUN Creatinine Est GFR ( Amer) Est GFR (Non-Af Amer) BUN/Creatinine Ratio Glucose Calcium Total Bilirubin AST ALT Alkaline Phosphatase Total Protein Albumin Globulin Albumin/Globulin Ratio Vancomycin Trough 6.0 Blood Type O Positive Antibody Screen Negative Crossmatch See Detail 05/15/24 05:30 WBC 2.1 L RBC 2.79 L Hgb 7.8 L Hct 24.3 L MCV 87.1 MCH 28.0 MCHC 32.1 RDW 15.0 Plt Count 54 L MPV 10.8 Seg Neuts % (Manual) 60.0 Lymphocytes % (Manual) 18.0 L Monocytes % (Manual) 22.0 H Eosinophils % (Manual) 0.0 L Basophils % (Manual) 0.0 L Neutrophils # (Manual) 1.26 L Lymphocytes # (Manual) 0.37 L Monocytes # (Manual) 0.46 Eosinophils # (Manual) 0.00 Basophils # (Manual) 0.00 Dohle Bodies 1+ Sodium 139 Potassium 2.7 L* Chloride 108 H Carbon Dioxide 23.1 Anion Gap 10.6 BUN 33.0 H Creatinine 1.59 H Est GFR ( Amer) 52 L Est GFR (Non-Af Amer) 43 L BUN/Creatinine Ratio 20.8 Glucose 306 H Calcium 8.6 Total Bilirubin 0.3 AST 7 L ALT 17 Alkaline Phosphatase 72 Total Protein 5.5 L Albumin 1.8 L Globulin 3.7 Albumin/Globulin Ratio 0.5 Vancomycin Trough Blood Type Antibody Screen Crossmatch
[2024-05-15] MEDS: VANCOMYCIN HCL 1,000 MG in 0.9 % SODIUM CHLORIDE 250 ML 250 MG IV (12:28)
[2024-05-15] MEDS: INSULIN DETEMIR 300 UNIT/3 ML INSULN.PEN 30 UNIT SUBQ (21:29)
[2024-05-15] MEDS: ZOLPIDEM TARTRATE 10 MG TABLET PO (21:29)
[2024-05-16] VITALS (13 sets, daily range): BP systolic 123–154; BP diastolic 71–83; PULSE 81–125; TEMP 36.6–36.7; O2SAT 90–94
[2024-05-16] MEDS: PIPERACILLIN SODIUM/TAZOBACTAM 3.375 GM in 0.9 % SODIUM CHLORIDE 50 ML IV ×2 (01:07→08:54)
[2024-05-16] MEDS: IPRATROPIUM/ALBUTEROL SULFATE 3 ML AMPUL.NEB IH ×2 (04:13→10:23)
[2024-05-16] MEDS: METHYLPREDNISOLONE SOD SUCC PF 40 MG/ML VIAL IVP ×2 (05:03→11:44)
[2024-05-16 06:33] LABS: Alanine Aminotransferase 18 U/L (16-63); Albumin Globulin Ratio 0.5; Albumin Level 1.9 g/dL (3.4-5.0); Alkaline Phosphatase 66 U/L (46-116); Anion Gap 7.8; Aspartate Amino Transferase 13 U/L (15-37); BUN Creatinine Ratio 21.3; Bilirubin Total 0.3 mg/dL (0.2-1.0); Calcium 8.8 mg/dL (8.5-10.1); Carbon Dioxide 26.1 mmol/L (21.0-32.0); Chloride 112 mmol/L (98-107); Estimated GFR (African America 60 (>=60); Estimated GFR (Non-African Ame 49 (>=60); Globulin 3.5 g/dL; Glucose 61 mg/dL (74-106); Hemoglobin 7.8 g/dL (14.0-18.0); Mean Corpuscular HGB Conc 32.6 g/dL (29.9-35.2); Mean Corpuscular Hemoglobin 28.5 pg (25.9-34.0); Mean Corpuscular Volume 87.2 fL (80.0-94.0); Mean Platelet Volume 11.4 fL (9.5-13.5); Platelet Count 51 10^3/uL (150-450); Red Blood Count 2.74 10^6/uL (4.70-6.10); Red Cell Distribution Width 15.3 % (11.0-15.0); Sodium 143 mmol/L (136-145); Total Protein 5.4 g/dL (6.4-8.2); White Blood Count 7.9 10^3/uL (4.0-11.0)
[2024-05-16 06:36] LABS: Potassium 2.9 mmol/L (3.5-5.1)
[2024-05-16 06:43] LABS: Hematocrit 23.9 % (42.0-54.0)
[2024-05-16 07:19] LABS: Band Neutrophils Absolute 0.2 10^3/uL (0.0-0.3); Lymphocytes Absolute Manual 0.39 10^3/uL (1.20-3.80); Monocytes Absolute Manual 0.63 10^3/uL (0.30-0.80)
[2024-05-16 07:21] LABS: Segmented Neut Absolute Manual 6.63 10^3/uL (1.4-6.5)
--- NOTE | 2024-05-16 07:24 | XR_ITS ---
The [address] [address] Patient Name: DA SMITH MRN: [id number] date: 1950 Sex: M Assigned Patient Location: MS Current Patient Location: MS Accession/Order Number: [id number] Exam Date: 05/16/2024 07:50 Report Date: 05/16/2024 08:17 At the request of: SHAIKH DAYNE Procedure: XR chest 1V EXAMINATION: XR chest 1V HISTORY: PNA COMPARISON: XR chest 05/15/2024 FINDINGS: LUNGS: Mild haziness and stranding within left lung base. VASCULATURE: No increased pulmonary vasculature. PLEURA: No pneumothorax, effusion, or pleural thickening. CARDIAC: Stable cardiac pacer. No cardiac enlargement. MEDIASTINUM: Prior sternotomy. No abnormal widening. BONES: No fracture or visible bone lesion. OTHER: Stable right Port-A-Cath. XR/XR chest 1V IMPRESSION: 1. Grossly stable mild left basilar infiltrates versus atelectasis. Electronically authenticated by: MARZEAN SCALES Date: 05/16/2024 08:17
[2024-05-16] MEDS: POTASSIUM CHLORIDE 10 MEQ ER TABLET 40 MEQ PO (08:55)
[2024-05-16] MEDS: POTASSIUM CHLORIDE 40 MEQ in 0.9 % SODIUM CHLORIDE 250 ML 67.5 MEQ IV (08:55)
[2024-05-16] MEDS: ATORVASTATIN CALCIUM 40 MG TABLET 80 MG PO (08:55)
--- NOTE | 2024-05-16 10:15 | CM.NOTE ---
Rounds made with Dr. Manzanares, pt will discharge to home today. No discharge needs identified.
--- NOTE | 2024-05-16 10:20 | CM.NOTE ---
Medicare Outpatient Observation Notice discussed with pt, pt verbalizes understanding and signs paper. Original given to pt and copy placed on pt's chart.
--- NOTE | 2024-05-16 10:22 | CM.NOTE ---
2nd Notice of Important Message From Medicare discussed with pt, pt denies questions or concerns.
[2024-05-16] MEDS: INSULIN ASPART 300 UNIT/3 ML PEN SUBQ (11:49)
[2024-05-16] MEDS: VANCOMYCIN HCL 1,000 MG in 0.9 % SODIUM CHLORIDE 250 ML 250 MG IV ×2 (13:20)
[2024-05-16 15:12] LABS: Anion Gap 10.3; BUN Creatinine Ratio 21.7; Calcium 8.9 mg/dL (8.5-10.1); Carbon Dioxide 23.3 mmol/L (21.0-32.0); Chloride 112 mmol/L (98-107); Estimated GFR (African America >60 (>=60); Estimated GFR (Non-African Ame 51 (>=60); Glucose 203 mg/dL (74-106); Potassium 4.6 mmol/L (3.5-5.1); Sodium 141 mmol/L (136-145)
--- NOTE | 2024-05-16 17:28 | PM.DS1 ---
DS: Providers Provider Date of admission: 05/13/24 00:44 Primary care physician: Non-Staff PhysicianMD Admitting clinician: Shaikh Leighton Attending physician on admission: Shaikh Leighton Consults: 05/13/24 Consult to Dietitian Routine Reason for consultation: weight loss 05/13/24 00:18 Consult to Pharmacy Routine Consulting Provider: Génesis Amado Reason for consultation: renal dosing for ZOSYN and vancomycin- neutropenic pneumonia Has provider been notified: No 05/13/24 07:28 Consult to Oncology Routine Consulting Provider: Natalya Jameson Reason for consultation: Neutropenic fever 05/13/24 10:40 Physical Therapy Eval and Treat Routine Reason for consultation: generalized weakness Attending physician on discharge: Shaikh Leighton Discharging clinician: Shaikh Leighton Anticipated date of discharge: 05/16/24 DS: Diagnosis Discharge Diagnosis (1) Sepsis: Qualifiers: Sepsis type: sepsis due to unspecified organism Sepsis acute organ dysfunction status: without acute organ dysfunction Qualified Code(s): A41.9 - Sepsis, unspecified organism (2) Bilateral pneumonia: Qualifiers: Pneumonia type: due to unspecified organism Lung location: lower lobe of lung Qualified Code(s): J18.9 - Pneumonia, unspecified organism (3) COPD exacerbation: (4) Cholangiocarcinoma: (5) Neutropenic fever: (6) Immunocompromised patient: (7) Pancytopenia: (8) (HFpEF) heart failure with preserved ejection fraction: Qualifiers: Heart failure chronicity: chronic Qualified Code(s): I50.32 - Chronic diastolic (congestive) heart failure (9) Diabetes: Qualifiers: Diabetes mellitus type: type 2 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 transplanted heart: [place] heart Associated angina: without angina Qualified Code(s): I25.10 - Atherosclerotic heart disease of [place] coronary artery without angina pectoris (11) Anemia requiring transfusions: (12) CKD stage 3a, GFR 45-59 ml/min: (13) HLD (hyperlipidemia): Qualifiers: Hyperlipidemia type: unspecified Qualified Code(s): E78.5 - Hyperlipidemia, unspecified DS: Summary Hospital Course Hospital Course: 74-year-old male with history of cholangiocarcinoma, on chemotherapy developed high-grade fever last and was brought over to ER for further evaluation. According to the patient he had been increasingly short of breath for = 2 days along with productive cough. He does not use oxygen at home and was found to have borderline low pulse ox requiring supplemental oxygen (1 to 2 L via nasal cannula). Workup in ER revealed bilateral infiltrates along with severe neutropenia. Given his immunosuppression, history of cholangiocarcinoma and underlying chronic lung disease-he was started on broad-spectrum antibiotics and was treated with IV vancomycin and Zosyn. He was also treated for COPD exacerbation with systemic steroids, inhaled Duonebs. Patient received one dose of Neupogen in consulation with Oncology and required one unit of PRBC for Hb of 6.9. Patient clinically improved during the course of admission. His hypoxia, work of breathing improved sig and he was comfortable on RA on the day of discharge. He is stable for discharge medically on oral Levaquin/Prednisone. . Time spent discussing smoking cessation with patient: more than 10 minutes Status at Discharge Functional status at discharge: independent ambulation Overall status at discharge: patient is back to baseline Time Spent with Patient Time attestation: Total time spent providing and/or coordinating discharge services: Time spent: greater than 30 minutes Exam Constitutional Vital Signs, click to edit/add: Last Vital Signs Temp 98.0 F 05/16/24 13:18 Pulse 100 H 05/16/24 14:00 Resp 18 05/16/24 13:18 BP 140/72 05/16/24 13:18 Pulse Ox 92 L 05/16/24 13:18 O2 Del Method Room Air 05/16/24 13:18 O2 Flow Rate 1 05/15/24 10:32 General appearance: cooperative, comfortable and frail appearing Respiratory Common normals: normal respiratory effort Effort & inspection: able to speak in complete sentences Auscultation: diminished lung sounds Cardio Common normals: regular rhythm, S1 normal heart sound and S2 normal heart sound Rate: regular rate Extremity Common normals: normal to inspection and full ROM Neuro Common normals: oriented x3, no focal motor deficits and no sensory deficits noted Psych Common normals: mental status grossly normal, thought process normal, denies homicidal ideation and denies suicidal ideation DS: Data Data Completed and Pending Labs on day of discharge: Labs from last 24 hours 05/16/24 05/16/24 14:34 05:55 WBC 7.9 RBC 2.74 L Hgb 7.8 L Hct 23.9 L* MCV 87.2 MCH 28.5 MCHC 32.6 RDW 15.3 H Plt Count 51 L MPV 11.4 Neut % (Auto) Finish Off Operator Lymph % (Auto) Finish Off Operator [place] % (Auto) Finish Off Operator Eos % (Auto) Finish Off Operator Baso % (Auto) Finish Off Operator Neut # (Auto) Finish Off Operator Lymph # (Auto) Finish Off Operator [place] # (Auto) Finish Off Operator Eos # (Auto) Finish Off Operator Baso # (Auto) Finish Off Operator Abs Immat Gran (auto) Finish Off Operator Seg Neuts % (Manual) 84.0 H Band Neutrophils % 3.0 Lymphocytes % (Manual) 5.0 L Monocytes % (Manual) 8.0 Eosinophils % (Manual) 0.0 L Basophils % (Manual) 0.0 L Imm/Tot Granulo (auto) Finish Off Operator Neutrophils # (Manual) 6.63 H Band Neutrophils # 0.2 Lymphocytes # (Manual) 0.39 L Monocytes # (Manual) 0.63 Eosinophils # (Manual) 0.00 Basophils # (Manual) 0.00 Sodium 141 143 Potassium 4.6 2.9 L* Chloride 112 H 112 H Carbon Dioxide 23.3 26.1 Anion Gap 10.3 7.8 BUN 30.0 H 30.0 H Creatinine 1.38 H 1.41 H Est GFR ( Amer) >60 60 Est GFR (Non-Af Amer) 51 L 49 L BUN/Creatinine Ratio 21.7 21.3 Glucose 203 H 61 L Calcium 8.9 8.8 Total Bilirubin 0.3 AST 13 L ALT 18 Alkaline Phosphatase 66 Total Protein 5.4 L Albumin 1.9 L Globulin 3.5 Albumin/Globulin Ratio 0.5 Preliminary micro results at discharge 05/12/24 22:20 Blood Culture Result 1 - Preliminary Blood NO GROWTH AT 36-48 HOURS. FINAL TO FOLLOW. Discharge Plan Discharge Disposition: Home, Self-Care Discharge Medications: New levofloxacin 750 mg tablet 750 mg PO DAILY 5 Days Qty: 5 0RF prednisone 20 mg tablet 20 mg PO BID 3 Days Qty: 6 0RF Continued carvedilol 12.5 mg tablet 12.5 mg PO BID pioglitazone 45 mg tablet 45 mg PO .AM albuterol sulfate 90 mcg/actuation HFA aerosol inhaler 2 inh INHALATION BID PRN (Reason: shortness of breath or wheezing) metformin 500 mg tablet extended release 24 hr 2,000 mg PO .AM glipizide 5 mg tablet 5 mg PO BID insulin glargine [Basaglar KwikPen U-100 Insulin] 100 unit/mL (3 mL) insulin pen 15 unit SUBCUT .PM Jardiance 25 mg tablet 25 mg PO .AM Trelegy Ellipta 200-62.5-25 mcg blister with device 1 inh INHALATION Q24H aspirin 81 mg capsule 81 mg PO DAILY Activity: increase activity as tolerated Diet: advance to your usual diet Print Language: Spanish Patient Instructions: Neutropenia (DC) Forms: Portal Instructions Follow Up Appointments: Keep already scheduled follow up appointment with primary care doctor Discharge Date/Time: 05/16/24 15:50
--- NOTE | 2024-05-17 16:21 | CM.DCFOLLOWU ---
Person spoke with:pt's How are you well? well, he is sleeping now How is your pain?none Did you understand your discharge instructions?yes Do you have any questions about your discharge instructions?no Were you given any prescriptions at discharge?yes Were you able to get your prescriptions filled?yes Do you understand how to take your medications as ordered?yes Do you have any questions about your follow up appointment and do you plan to keep your follow up appointment? no questions, follow up apts were already scheduled Is there anything else that you would like to discuss?no Questions/Comments/Concerns/Other: none
== END 2024-05-16 15:50 | disposition home or self-care (01) | DRG 871 ==
LOC: ER 22:25 → MS 05-13 00:45
PROVIDERS: Registered Nurse; Admitting Provider Internal Medicine; Emergency Provider Internal Medicine; Visit Provider Internal Medicine
DX: A41.9 Sepsis, unspecified organism (principal); D61.811 Other drug-induced pancytopenia; J18.8 Other pneumonia, unspecified organism; C22.1 Intrahepatic bile duct carcinoma; J44.0 Chronic obstructive pulmonary disease with (acute) lower respiratory infection; J44.1 Chronic obstructive pulmonary disease with (acute) exacerbation; D84.9 Immunodeficiency, unspecified; I50.32 Chronic diastolic (congestive) heart failure; D70.9 Neutropenia, unspecified; R50.81 Fever presenting with conditions classified elsewhere; E11.22 Type 2 diabetes mellitus with diabetic chronic kidney disease; I25.10 Atherosclerotic heart disease of native coronary artery without angina pectoris; N18.31 Chronic kidney disease, stage 3a; E78.5 Hyperlipidemia, unspecified; Z79.60 Long term (current) use of unspecified immunomodulators and immunosuppressants; D64.9 Anemia, unspecified; Z79.899 Other long term (current) drug therapy; Z79.4 Long term (current) use of insulin; Z87.891 Personal history of nicotine dependence; Z95.810 Presence of automatic (implantable) cardiac defibrillator; Z95.1 Presence of aortocoronary bypass graft; T45.1X5A Adverse effect of antineoplastic and immunosuppressive drugs, initial encounter
CPT/HCPCS: 36415; 36430; 36591; 71045; 71275; 80048; 80053; 80202; 81003; 82948; 83605; 83735; 83880; 85007; 85014; 85018; 85025; 85027; 85378; 86850; 86900; 86901; 86923; 87040; 87070; 94640; 94667; 94668; 94761; 96365; 99285; J1442; J1940; J2543; J2919; J3370; J3480; P9016; Q9967